=== PATIENT | male | born 1935 | race Caucasian/White ===

== ENCOUNTER → 2016-11-17 | Day surgery (SDC) | payer BC, MEDICARE ==
[2016-11-06 09:49] VITALS: BMI 22.6
[~2016-11-17] MED LIST: BUPIVACAINE 0.5% 30 ML VIAL ONE; CLINDAMYCIN 600 MG/50 ML IV ONE; FENTANYL 100 MCG/2 ML VIAL IV ONE; FENTANYL 100 MCG/2 ML VIAL IV PRN; HEPARIN 500 UNITS/5 ML (100 UNITS/ML) SYR FLUSH ONE; HYDROmorphone 1 MG INJECTION IV PRN; ISOVUE-300 (61%) 50 ML ONE; LABETALOL 20 MG/4 ML SYRINGE IV PRN; LIDOCAINE 1% 30 ML VIAL (PRESERVATIVE FREE) ONE; LR 500 ML IV ONE; MEPERIDINE 25 MG/ML TUBEX IV PRN; ONDANSETRON HCL 4 MG ODT TAB PO PRN; ONDANSETRON HCL 4 MG/2 ML VIAL IV PRN; PROMETHAZINE 25 MG/ML VIAL IV PRN; PROPOFOL 200 MG/20 ML VIAL IV ONE; hydrALAZINE 20 MG/ML VIAL IV PRN
--- NOTE | 2016-11-17 13:12 | SC.ANESPOS ---
Post-Anesthesia Note LOC: [facility] Post-Anesthesia Assessment: Awake, Returned to Baseline, Hemodynamically Stable , Pain Control Adequate Phase I & II Recovery Complete: Yes Apparent Anesthesia Complication: No : N - Vital Signs Blood Pressure: 139/87 Pulse: 101 Resp Rate: 18 O2 Sat: 96 Temp: 97.6 F
--- NOTE | 2016-11-17 13:13 | HIM.ANES ---
Anesthesia Evaluation & Plan Diagnoses: WEDGE COMPRESSION FRACTURE OF UNSP LUMBAR VERTEBRA, INIT (11/17/16) Consented Procedure: LUMBAR 4 KYPHOPLASTY AND OTHER PROCEDURES INDICATED - Focused Review of Systems Cardiac History: Yes: Hx Hypertension (STABLE), Hx Heart Attack (12/2011), Hx Cardiac Catheterization (01/03/2012), Hx Coronary Stent (01/03/2012 STENT OM1), Hx Cardiac Disorders, Hx Abnormal Cholesterol/Hyperlipidemia HEENT: Yes: Hx Hearing Impairment ([place]), Cataract Removal, Glaucoma (LEFT EYE), Hx Vision Problem (PRESCRIPTION), Other HEENT Problems Hx Other HEENT Problems: [place] Respiratory: Yes: Hx Snoring Gastrointestinal: Yes: Hx Gastroesophageal Reflux Disease, Hx Gastrointestinal Disorders, Hx Colonoscopy, Hx Endoscopy Neurological/Musculoskeletal: Yes: Hx Back Pain No: Hx Neurological Disorders Psychological: Yes Hx Anxiety (PER PCP), Yes Hx Depression (PER PCP), Yes Hx Mental/Emotional Disorders Blood/Autoimmune: Yes: Hx Blood Transfusions, Hx Anemia (11/01/2016 HGB 12.1 HCT 37.1) No: Hx AIDS, Hx Hepatitis (type) Smoking Status: Never smoker Hx Stress Test (date): Yes (06/28/2016 EF 55% NO ISCHEMIA) Hx Chest Xray (date): Yes (06/01/2016 SOFT TISSUE LUNG MASS) Surgical History: Yes: T&A Other Surgical History: SPLEENECTOMY 06/2016 CYSTOSCOPY 08/2014 - Focused Physical Exam NPO since: 11/16/16 2300 Mallampati: Class II Thyromental Distance: Greater than 3 Neck: Full Range of Motion Dental: Loose/Decaying Teeth Cardiovascular/Chest: Normal Respiratory: Lungs clear Any problems with anesthesia, including nausea and vomiting?: No Any relatives with a history of Malignant Hyperthermia?: No Beta Meghan given (if appropriate): Yes Does the patient have a history of Motion Sickness-: No Other: Problem List Problem Status Onset Compression fracture of L4 lumbar vertebra Acute Right lower lobe pneumonia Acute Allergies Allergy/AdvReac Type Severity Reaction Status Date / Time Iodinated Contrast Media - Allergy Unknown Hives* Verified 11/17/16 12:55 IV Dye [IV Dye, Iodine Containing Contrast ] Penicillins Allergy Unknown Rash-Locali Verified 11/17/16 12:55 zed Home Medications Medication Instructions Recorded Last Taken Type Bimatoprost [Lumigan 0.01% Ophth 1 drop OD QHS 08/19/14 11/16/16 History Soln] Brimonidine Tartrate [Alphagan-P 1 drop OD BID 08/19/14 11/17/16 09:30 History 0.1%] Omeprazole [Prilosec] 20 mg PO DAILY 08/19/14 11/17/16 09:30 History Nitroglycerin 0.4 mg SL .[id number] PRN 07/27/15 2 Months Ago History Sucralfate [Carafate] 1 gm PO QID 07/27/15 11/16/16 History Carvedilol [Coreg] 3.125 mg PO BID 07/05/16 11/17/16 09:30 History Citalopram (anti-depressant) 20 mg PO HS 07/05/16 11/16/16 History [Celexa] Ranolazine [Ranexa] 1,000 mg PO BID 07/05/16 11/17/16 09:30 History Tramadol HCl [Ultram] 50 mg PO Q4 #30 tablet 11/06/16 11/16/16 Rx Ubidecarenone [Co Q-10] 100 mg PO DAILY 11/06/16 11/16/16 History Height and Weight Patient's height 6 ft Patient's weight 167 lb BMI 22.6 Vital Signs Temperature 97.6 F 11/17/16 13:12 Pulse Rate 101 11/17/16 13:12 Respiratory Rate 18 11/17/16 13:12 Blood Pressure 139/87 11/17/16 13:12 Pulse Oxygen Saturation 96 11/17/16 13:12 - Anesthetic Plan Anesthesia Type: MAC ASA Class: 4 -: I have examined this patient and reviewed the medical record. The patient has been assessed prior to anesthesia. Risks and benefits of anesthesia and anesthetic technique options have been discussed and all questions answered. The patient accepts the risk and desires me to proceed with the planned anesthetic.
--- NOTE | 2016-11-17 14:41 | HIMOPRPT ---
DATE OF PROCEDURE: 11/17/16 PREOPERATIVE DIAGNOSIS: L4 compression fracture. POSTOPERATIVE DIAGNOSIS: L4 compression fracture. PROCEDURE PERFORMED: Kyphoplasty, L4. SURGEON: Mickey Hughes MD. RIGHT OF WAY MAINTENANCE SUPERVISOR: . ANESTHESIA: General endotracheal anesthesia. IV FLUIDS: Crystalloids ESTIMATED BLOOD LOSS: Minimal SPECIMENS: None. COMPLICATIONS: None. IMPLANTS: Bone cement 4.5 cubic centimeters in each pedicle. A total of 9 cubic centimeters injected in the vertebral body of L4. BRIEF HISTORY: MAGNOLIA STEVEN is a 81 year-old M patient. Patient had a history of fall and sustained an L4 compression fracture. This was seen on the MRI as an acute L4 compression fracture. The patient was scheduled for kyphoplasty of L4. The patient understood that the risks involved in surgery include infection, extravasation of the cement, neurological deficit, DVT, pulmonary embolism, stroke, and even . The patient volunteered an informed consent. The patient was seen on the day of surgery in the preop holding area. Surgical site was marked. The patient was then wheeled back into the operating room. DESCRIPTION OF THE PROCEDURE: The patient was intubated while on the hospital bed and then placed prone on the radiolucent table. Proper time-out was performed. 2 grams of IV Ancef were given. Surgical site was prepped and draped. Double C-arm was used. We started with cannulation of the left L4 pedicle. We used Jamshidi needles to cannulate the each pedicle. AP and lateral C-arm images were used. Once the pedicles were cannulated, we inserted a kyphoplasty balloon on each side. This balloon was inflated under AP and lateral C-arm images. We then injected a semiliquid cement. Total of 4.5 cubic centimeters cement was injected into the each pedicle. No extravasation was noted. The final AP and lateral x-rays were obtained. The skin was closed with 3-0 nylon. The patient tolerated the procedure very well and was taken to the recovery room in stable condition. DISPOSITION: The patient would be discharged home today. The patient would be seen back in the clinic in 2 weeks.
[2016-11-17 19:56] VITALS: BP 139/87; PULSE 101; TEMP 97.6
== END ==
LOC: SDC 11:18
PROVIDERS: ATTEND Orthopaedic Surgery
PROC: 0QU03JZ Supplement Lumbar Vertebra with Synthetic Substitute, Percutaneous Approach (ICD-10-PCS; 2016-11-17)
PROC: 0QS03ZZ Reposition Lumbar Vertebra, Percutaneous Approach (ICD-10-PCS; principal; 2016-11-17 12:50)
DX: S32.049A Unspecified fracture of fourth lumbar vertebra, initial encounter for closed fracture (principal); W19.XXXA Unspecified fall, initial encounter; K21.9 Gastro-esophageal reflux disease without esophagitis; J45.909 Unspecified asthma, uncomplicated; N40.1 Benign prostatic hyperplasia with lower urinary tract symptoms; H40.9 Unspecified glaucoma; E78.00 Pure hypercholesterolemia, unspecified; I25.10 Atherosclerotic heart disease of native coronary artery without angina pectoris; C85.10 Unspecified B-cell lymphoma, unspecified site; R13.10 Dysphagia, unspecified; Z95.5 Presence of coronary angioplasty implant and graft; I25.2 Old myocardial infarction; R30.0 Dysuria
CPT/HCPCS: 22514; J1642; J2001; J3010; J3490